=== PATIENT | female | born 1980 | race Caucasian/White ===

== ENCOUNTER 2016-05-31 11:45 | Inpatient (IN) | payer BC ==
[~2016-05-31] VITALS: Ht 162.6 cm; Wt 79.5 kg
--- NOTE | ~2016-05-31 | OR ---
PATIENT'S NAME: ODETTE [facility]MA [facility] AGE: 36 Y [address] ROOM: [place] [id number] LOCATION: [facility] ADMIT DATE: 05/31/2016 OR/Procedure Report DISCHARGE DATE: FAMILY PHYSICIAN: PHYSICIAN, NO ATTENDING PHYSICIAN: SJ SHERWOOD SURGEON: Sj Sherwood MD DELIVERY RN: DATE OF PROCEDURE: 05/31/2016 VAGINAL DELIVERY NOTE PREOPERATIVE DIAGNOSES: 1. Intrauterine at 39 weeks 4 days. 2. Active labor. 3. Gestational hypertension. 4. Thrombocytopenia. 5. Thick meconium-stained fluid. POSTOPERATIVE DIAGNOSES: 1. Intrauterine at 39 weeks 4 days. 2. Active labor. 3. Gestational hypertension. 4. Thrombocytopenia. 5. Thick meconium-stained fluid. PROCEDURE PERFORMED: Spontaneous vaginal delivery over intact perineum. ANESTHESIA: Intrathecal spinal as well as an epidural. FINDINGS: Viable male infant with score of 8, 9 and weight of 7 pounds 13 ounces. Placenta intact with 3-vessel cord. First-degree perineal laceration. Arterial cord pH is 7.24 with a base deficit of 5. COMPLICATIONS: None. ESTIMATED BLOOD LOSS: 300 mL. INDICATIONS: The patient is a 36-year-old, -0-0-2, who presented to clinic today with complaints of contractions. She was found to be 3, 90, and -2, which was a change from examination yesterday. She also was noted to have a blood pressure of 140/100, which was also a new finding. She was subsequently sent to Labor and Delivery for evaluation. She had a CBC checked which found platelets to be 103,000. Her hemoglobin was normal. Her CMP was normal. She did occasionally have elevated blood pressures, but not in severe range as she progressed throughout labor. At 8 cm, she had an artificial PATIENT'S NAME: [place] ODETTE L [facility] AGE: 36 Y [address] ROOM: [place] [id number] LOCATION: [facility] ADMIT DATE: 05/31/2016 OR/Procedure Report DISCHARGE DATE: FAMILY PHYSICIAN: PHYSICIAN, NO ATTENDING PHYSICIAN: SJ SHERWOOD rupture of membranes of thick meconium-stained fluid, and shortly thereafter presented to complete and started maternal expulsive efforts. DESCRIPTION OF PROCEDURE: The patient was placed in the dorsal lithotomy and was prepped and draped in the usual fashion. With maternal expulsive effort, the head was delivered in the DOROTA position. The anterior shoulder was then delivered followed by the remainder of the fetus. The cord was clamped and cut. The infant was handed to the awaiting delivery nurse. Arterial cord gas was obtained. Cord blood was obtained. The placenta then delivered spontaneously intact. Three-vessel cord was noted. A first-degree laceration was noted and repaired in the usual fashion with 3-0 Polysorb suture. Instrument, sponge, and needle counts were correct at the conclusion of the case. MD ASHLEY REDMOND/yony /[id number] d: 05/31/16 2317 t: 06/03/16 0943, OPERATIVE SUMMARY
[2016-05-31 12:37] LABS: BASOPHIL % 0.2 %; EOSINOPHIL % 0.1 %; HEMATOCRIT 38.3 % (33.0-46.0); HEMOGLOBIN 13.3 g/dL (11.0-15.0); IMMATURE GRANULOCYTE # 0.1 K/uL (0.0-0.3); IMMATURE GRANULOCYTE % 0.4 %; LYMPHOCYTE # 1.5 K/uL (0.8-4.0); LYMPHOCYTE % 12.3 %; MCH 31.1 pg (27.0-34.0); MCHC 34.7 gm/dL (32.0-36.5); MCV 89.7 fl (83.0-98.0); MONOCYTE # 0.7 K/uL (0.0-1.0); MONOCYTE % 5.4 %; MPV 13.9 fl (9.4-12.4); NEUTROPHIL % 81.6 %; NRBC % 0 /100WBC (0-0.00); PLATELET COUNT 103 K/uL (150-450); RBC 4.27 M/uL (3.50-5.50); RDW-CV 12.5 % (11.9-14.6); WBC 12.3 K/uL (4.0-11.0)
[2016-05-31] MEDS ORDERED: PRENATAL 1+1)(P1 TAB PO (12:40)
[2016-05-31] MEDS ORDERED: SUDAFED PO (12:41)
[2016-05-31 12:56] LABS: ALBUMIN 2.8 gm/dL (3.5-5.0); ALK PHOS 190 IU/L (33-138); ALT 19 IU/L (12-78); ANION GAP 16.1 (10.0-19.0); AST 21 IU/L (10-40); BLOOD UREA NITROGEN 14 mg/dL (6-24); CALCIUM 8.3 mg/dL (8.5-10.5); CHLORIDE 104 mMol/L (96-110); CO2 20 mMol/L (22-32); CREATININE 0.8 mg/dL (0.5-1.1); ESTIMATED GFR (MDRD EQUATION) > 60; POTASSIUM 4.1 mMol/L (3.7-5.1); SODIUM 136 mMol/L (135-145); TOTAL BILIRUBIN 0.2 mg/dL (0.0-1.5); TOTAL PROTEIN 6.4 g/dL (6.0-8.4)
[2016-05-31 17:39] LABS: BICARBONATE 23.5 mmol/L (18.0-23.0); PCO2 55 mmHg (35-45); PO2 8 mmHg (80-90)
--- NOTE | 2016-06-01 05:42 | NUR ---
VSS. FUNDUS FIRM, AT THE UMBILICUS, SMALL FLOW. LAST HAD 2 PERCOCET AT 0430, MOTRIN AT 1805. VOIDING WITHOUT DIFFICULTY.
[2016-06-01 06:05] LABS: BASOPHIL % 0.2 %; EOSINOPHIL % 0.4 %; HEMATOCRIT 34.2 % (33.0-46.0); HEMOGLOBIN 12.1 g/dL (11.0-15.0); IMMATURE GRANULOCYTE % 0.3 %; LYMPHOCYTE # 1.9 K/uL (0.8-4.0); LYMPHOCYTE % 17.8 %; MCH 31.8 pg (27.0-34.0); MCHC 35.4 gm/dL (32.0-36.5); MCV 89.8 fl (83.0-98.0); MONOCYTE # 0.8 K/uL (0.0-1.0); MONOCYTE % 7.8 %; MPV 13.5 fl (9.4-12.4); NEUTROPHIL # (ANC) 7.8 K/uL (1.8-7.8); NEUTROPHIL % 73.5 %; NRBC % 0 /100WBC (0-0.00); PLATELET COUNT 84 K/uL (150-450); RBC 3.81 M/uL (3.50-5.50); RDW-CV 12.5 % (11.9-14.6); WBC 10.6 K/uL (4.0-11.0)
--- NOTE | 2016-06-01 16:30 | NUR ---
Last VS: T:97.6 P:83 R: 12 BP: 128/68 Pain ratin. Last pain med: Percocet Medicated at: 0920 Effective: Yes Breasts: SOFT, Nipples: TENDER Fundus:, FIRM -1, Lochia: SM, Epis/Perineum: TENDER, APPROXIMATED, , Voiding well: YES Significant event: *.
--- NOTE | 2016-06-02 05:12 | NUR ---
Last VS: T:97.8 P:75 R: 16 BP: 114/72 Pain ratin Last pain med: NONE GIVEN Medicated at: Effective: YES Breasts: SOFT Nipples: INTACT Fundus: FIRM,MIDLINE ,1 BELOW Lochia: SM, RUBRA Epis/Perineum: APPROX, , Voiding well: Y Significant event: PT DOING GREAT. PLANS FOR DISMISSAL TODAY. HAS SOOTHIES IN FRIDGE. HAS BOTH NIPPLE CREAMS.
[2016-06-02] MEDS ORDERED: MOTRIN800 MG PO (06:48)
[2016-06-02] MEDS ORDERED: SURFAK240 MG PO (06:48)
[2016-06-02] MEDS ORDERED: LANSINOH7 GM TOP (06:49)
[2016-06-02] MEDS ORDERED: NORCO 5-325 TA1 EACH PO (06:52)
--- NOTE | 2016-06-02 12:14 | NUR ---
0840. PT C/O HEADACHE, RELIEVED WITH LYING DOWN AND WORSE WHEN SITTING/STANDING. Santhosh MÉNDEZ DRY SANDER NOTIFIED AND DISCUSSED OPTIONS WITH PT. DUE TO LAB VALUES PT IS UNABLE TO RECEIVE BLOOD PATCH. ALTERNATIVE OPTIONS DISCUSSED AND PT SATISFIED.
== END 2016-06-02 10:10 | disposition disaster alternative care site (69) | DRG 775 ==
LOC: GOBS 11:45 → GOBM 06-03 09:22 → EDSTATUS 06-03 11:40 → GOBM 06-03 11:46
PROVIDERS: ADMIT Obstetrics & Gynecology
PROC: 10907ZC Drainage of Amniotic Fluid, Therapeutic from Products of Conception, Via Natural or Artificial Opening (ICD-10-PCS; principal; 2016-05-31)
PROC: 0HQ9XZZ Repair Perineum Skin, External Approach (ICD-10-PCS; principal; 2016-05-31)
PROC: 10E0XZZ Delivery of Products of Conception, External Approach (ICD-10-PCS; principal; 2016-05-31)
DX: O13.4 Gestational [pregnancy-induced] hypertension without significant proteinuria, complicating childbirth (principal); O99.12 Other diseases of the blood and blood-forming organs and certain disorders involving the immune mechanism complicating childbirth; O70.0 First degree perineal laceration during delivery; O77.0 Labor and delivery complicated by meconium in amniotic fluid; Z3A.39 39 weeks gestation of pregnancy; Z37.0 Single live birth
CPT/HCPCS: J2590; J3010; J7120